=== PATIENT | male | born 2000 | race Two or more races ===

== ENCOUNTER → 2024-07-06 | Emergency (ER) | payer MEDICAID ==
[~2024-07-06] VITALS: Ht 167.6 cm; Wt 68.0 kg
[~2024-07-06] MED LIST: CEPH-570 PO; HYDR-4209 PO; LIDOCAINE 1% INJ 50 ML MDV IJ ONE; TDAP [DIPH/PERTUSSIS/TET] 0.5 ML VIAL IM ONE
[2024-07-06 16:15] VITALS: BP 155/74; TEMP 98.3; O2SAT 99
[2024-07-06] MEDS: HYDROCODONE/APAP 10/325MG TABLET PO ONE (16:49)
[2024-07-06] MEDS: TDAP [DIPH/PERTUSSIS/TET] 0.5 ML VIAL IM ONE (17:00)
[2024-07-06] MEDS: LIDOCAINE HCL/PF 1% 30 ML VIAL TP ONE (17:00)
== END | disposition home or self-care (01) ==
LOC: ER 16:20
DX: S61.215A Laceration without foreign body of left ring finger without damage to nail, initial encounter (principal); M79.642 Pain in left hand; R60.0 Localized edema; Z60.2 Problems related to living alone; W27.0XXA Contact with workbench tool, initial encounter; Y93.89 Activity, other specified; Y92.89 Other specified places as the place of occurrence of the external cause; Y99.8 Other external cause status
CPT/HCPCS: 12002; 73130; 90471; 90715; 99283; A6403; J3490